=== PATIENT | female | born 1955 | race American Indian/Alaskan Native ===

== ENCOUNTER 2018-09-04 18:33 | Emergency (ER) | payer MEDICARE ==
[~2018-09-04] VITALS: Ht 162.6 cm; Wt 66.7 kg
[2018-09-04 19:24] LABS: Alanine Aminotransferase 122 U/L (13-56); Albumin 3.8 g/dL (3.4-5.0); Amylase 60 U/L (25-115); Anion Gap 9 (5-15); Aspartate Aminotransferase 135 U/L (15-37); BUN/Creatinine Ratio 10.8; Blood Urea Nitrogen 13 mg/dL (7-18); Calcium 8.8 mg/dL (8.5-10.1); Carbon Dioxide 27 mmol/L (21-32); Chloride 103 mmol/L (98-107); GFR African American 58 mL/min; GFR Non-African American 48 mL/min; Glucose 120 mg/dL (74-106); Lipase 173 U/L (73-393); Potassium 3.6 mmol/L (3.5-5.1); Sodium 139 mmol/L (136-145)
[2018-09-04 19:29] LABS: Alkaline Phosphatase 136 U/L (45-117); Bilirubin, Total 0.9 mg/dL (0.2-1.0); Total Protein 9.2 g/dL (6.4-8.2)
[2018-09-04] MEDS ORDERED: ONDANSETRON HCL 4 MG/2 ML VIAL IV ONE (19:30)
[2018-09-04] MEDS ORDERED: MORPHINE SULFATE 4 MG/ML SYR/VIAL IV ONE (19:30)
[2018-09-04 19:35] LABS: Basophils # (auto) 0 uL; Basophils % (auto) 0.6 % (0.0-2.0); Eosinophils # (auto) 0.1 uL; Eosinophils % (auto) 2.1 % (0.0-7.0); Hematocrit 37.3 % (36.0-46.0); Hemoglobin 12.4 g/dL (12.2-16.2); Lymphocytes # (auto) 1.2 uL; Lymphocytes % (auto) 23.8 % (10.0-50.0); Mean Corpuscular Hgb Conc. 33.4 g/dL (32.0-36.0); Mean Corpuscular Volume 92.9 fL (80.0-100.0); Monocytes # (auto) 0.5 uL; Monocytes % (auto) 9.9 % (0.0-12.0); Neutrophils # (auto) 3.2 uL; Neutrophils % (auto) 63.6 % (37.0-80.0); Nucleated Red Blood Cells % 0.1 %; Platelet Count (auto) 206 10^3/uL (140-450); Red Blood Cells 4.01 10^6/uL (4.0-5.20); Red Cell Distribution Width 18.7 % (11.8-14.3)
[2018-09-04 19:44] LABS: INR 1.13 (0.9-1.15); Partial Thromboplastin Time 25.8 sec (23.78-33.04)
[2018-09-04 22:07] LABS: Alcohol, Urine < 3.0 mg/dL (0-5); Amphetamine Screen, Urine POSITIVE (NEGATIVE); Barbiturate Scree,Urine NEGATIVE (NEGATIVE); Benzodiazephine Screen, Urine NEGATIVE (NEGATIVE); Cannabinoid Screen, Urine POSITIVE (NEGATIVE); Cocaine Screen, Urine NEGATIVE (NEGATIVE); Opiate Scree,Urine POSITIVE (NEGATIVE); Phencyclidine Screen, Urine NEGATIVE (NEGATIVE)
[2018-09-04 22:32] VITALS: BP 149/77
== END 2018-09-05 00:34 | disposition home or self-care (01) ==
LOC: ER 18:33
DX: K57.30 Diverticulosis of large intestine without perforation or abscess without bleeding (principal); R94.5 Abnormal results of liver function studies; F17.210 Nicotine dependence, cigarettes, uncomplicated; F12.10 Cannabis abuse, uncomplicated; Z88.8 Allergy status to other drugs, medicaments and biological substances
CPT/HCPCS: 36415; 74176; 80053; 80307; 82150; 83690; 84484; 85025; 85610; 85730; 93005; 96374; 96375; 99285; J2270; J2405

== ENCOUNTER 2020-05-05 19:30 | Emergency (ER) | payer MEDICARE ==
[~2020-05-05] VITALS: Ht 162.6 cm; Wt 68.5 kg
[2020-05-05 19:58] VITALS: BP 152/88
== END 2020-05-05 20:09 | disposition home or self-care (01) ==
LOC: ER 19:30
DX: S01.01XA Laceration without foreign body of scalp, initial encounter (principal); X58.XXXD Exposure to other specified factors, subsequent encounter

== ENCOUNTER 2020-06-22 19:01 | Emergency (ER) | payer MEDICARE ==
[~2020-06-22] VITALS: Ht 162.6 cm; Wt 68.0 kg
[2020-06-22 22:07] VITALS: BP 149/75
[2020-06-22] MEDS ORDERED: KETOROLAC TROMETH 60MG/2ML VIAL IM ONE (23:30)
== END 2020-06-23 00:55 | disposition home or self-care (01) ==
LOC: ER 19:01
DX: M54.12 Radiculopathy, cervical region (principal); M54.2 Cervicalgia; M13.88 Other specified arthritis, other site; G89.29 Other chronic pain
CPT/HCPCS: 72125; 96372; 99284; J1885